=== PATIENT | female | born 1970 | race Caucasian/White ===

== ENCOUNTER 2017-02-09 03:06 | Emergency (ER) | payer OTHER ==
[2017-02-09 03:32] LABS: BASO # 0.1 10_X3_uL (0.0-0.1); BASO % 1.1 % (0.1-1.2); EOS # 0.1 10_X3_uL (0.0-0.4); EOS % 1.1 % (0.7-5.8); GRAN # 4.4 10_X3_uL (1.6-6.1); GRAN % 50.9 % (34.0-71.1); HEMATOCRIT 40.4 % (34-45); HEMOGLOBIN 13.9 g/dL (11.2-15.7); LYMPH # 3.5 10_X3_uL (1.2-3.7); MEAN CORPUSCULAR HEMOGLOBIN 35.5 pg (27.0-33.0); MEAN CORPUSCULAR HGB CONC 34.4 g/dL (32.0-36.0); MEAN CORPUSCULAR VOLUME 103.3 fL (79-95); MEAN PLATELET VOLUME 8.7 fl (7.5-11.5); MONO # 0.5 10_X3_uL (0.2-0.9); MONO % 5.9 % (4.7-12.5); PLATELET COUNT 303 x10_3/uL (182-369); RED BLOOD COUNT 3.91 x10_6/uL (3.9-5.2); RED CELL DISTRIBUTION WIDTH 12.9 % (11.7-14.4); WHITE BLOOD COUNT 8.5 x10_3/uL (4.0-10.0)
[2017-02-09 03:51] LABS: ALBUMIN 4.4 gm/dL (3.4-5.0); ALKALINE PHOSPHATASE 109 U/L (50-136); ALT/SGPT 12 U/L (3.5-33.9); AMYLASE 152 U/L (15.62-74.58); AST/SGOT 18 U/L (7.04-26.96); BLOOD UREA NITROGEN 15 mg/dL (7-18); CALCIUM 9.3 mg/dL (8.7-10.7); CARBON DIOXIDE 24 mmol/L (21-32); CREATININE 0.7 mg/dL (0.6-1.3); GLUCOSE,RANDOM 101 mg/dL (70-99); LIPASE 40 U/L (6.75-60.75); POTASSIUM 4.5 mmol/L (3.5-5.1); SODIUM 139 mmol/L (136-145); TOTAL PROTEIN 7.8 gm/dL (6.4-8.2)
[2017-02-09 03:53] LABS: BILIRUBIN,TOTAL < 0.15 mg/dL (0.0-1.0)
== END 2017-02-09 05:15 | disposition home or self-care (01) ==
LOC: ER 03:06
PROVIDERS: Emergency Medicine
DX: R10.9 Unspecified abdominal pain (principal); F17.210 Nicotine dependence, cigarettes, uncomplicated
CPT/HCPCS: 36415; 80053; 82150; 83690; 85025; 96372; 99284-25